=== PATIENT | male | born 1985 | race Caucasian/White ===

== ENCOUNTER 2021-07-18 12:25 | Emergency (ER) | payer OTHER, BC, SELFPAY ==
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
[2021-07-18 12:40] VITALS: BP 131/78; PULSE 64; RESP 16; TEMP 36.5; O2SAT 100
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
== END 2021-07-18 13:45 | disposition home or self-care (01) ==
PROVIDERS: Emergency Provider Registered Nurse
DX: S06.0X0A Concussion without loss of consciousness, initial encounter (principal); V49.50XA Passenger injured in collision with unspecified motor vehicles in traffic accident, initial encounter; Y99.0 Civilian activity done for income or pay
CPT/HCPCS: 72050; 99213; G0463